=== PATIENT | male | born 1970 | race Caucasian/White ===

== ENCOUNTER 2018-05-12 05:58 | Inpatient (IN) | payer MEDICAID ==
[~2018-05-12] VITALS: Ht 170.2 cm; Wt 59.0 kg
[2018-05-12 09:00] VITALS: BP 119/76
--- NOTE | 2018-05-12 09:00 | NUR ---
APPLICATION ADMINISTRATOR PATIENT CAME IN AT 0845AM, DIRECT ADMIT FROM SHELLMAN. PATIENT RECEIVED VIA AMBULANCE, CAME IN VIA GURNEY. PATIENT A/OX4, NO DISTRESS NOTED, BREATHING EVEN AND UNLABORED, CALM AND COOPERATIVE. PIV NOTED ON LEFT AC G20. KEPT COMFORTABLE AT THIS TIME, NEEDS ATTENDED, CALL LIGHT WITHIN REACH, WILL CONTINUE TO MONITOR.
[2018-05-12] MEDS ORDERED: GABA-534 PO (09:03)
[2018-05-12] MEDS ORDERED: BACL10TA PO (09:03)
[2018-05-12] MEDS ORDERED: ONDANSETRON HCL/PF 4 MG/2 ML VIAL IVP PRN (10:00)
[2018-05-12] MEDS ORDERED: GABAPENTIN 300 MG CAPSULE PO PRN (10:00)
[2018-05-12] MEDS ORDERED: BACLOFEN (10 MG) 10 MG TABLET PO PRN (10:00)
[2018-05-12] MEDS ORDERED: ACETAMINOPHEN 325 MG TABLET PO PRN (10:00)
[2018-05-12] MEDS ORDERED: MAG HYDROX/AL HYDROX/SIMETH 30 ML UDC PO PRN (10:00)
[2018-05-12] MEDS ORDERED: MAGNESIUM HYDROXIDE 30 ML UDC PO PRN (10:00)
[2018-05-12] MEDS ORDERED: Z GUARD REMEDY 2 OZ OINT TP PRN (10:00)
[2018-05-12 10:23] LABS: BASOPHILS % (AUTO) 0.4 % (0.0-2.0); EOSINOPHILS % (AUTO) 0.9 % (0.0-6.0); HEMATOCRIT 34 % (39-51); HEMOGLOBIN 11.4 g/dL (13.5-17.5); LYMPHOCYTES # (AUTO) 1.5 /CMM (0.8-4.8); LYMPHOCYTES % (AUTO) 16.9 % (20.0-44.0); MEAN CORPUSCULAR HGB CONC 34 g/dl (31.0-36.0); MEAN CORPUSCULAR VOLUME 97 fL (80-96); MONOCYTES # (AUTO) 0.6 /CMM (0.1-1.30); MONOCYTES % (AUTO) 7.5 % (2.0-12.0); NEUTROPHILS # (AUTO) 6.4 /CMM (1.8-8.9); NEUTROPHILS % (AUTO) 74.3 % (43.0-81.0); PLATELET COUNT (AUTO) 204 /CMM (150-450); RED BLOOD CELL COUNT(AUTO) 3.48 MIL/uL (4.5-6.0); WHITE BLOOD COUNT (AUTO) 8.6 K/uL (4.3-11.0)
--- NOTE | 2018-05-12 10:30 | NUR ---
RN NOTES SKIN ASSESSMENT COMPLETED, SKIN DRY AND INTACT, BELONGINGS RECONCILED. PATIENT IN BED, RESTING. NEEDS ATTENDED AND MET.
[2018-05-12 10:33] LABS: CALCIUM, SERUM 8.4 mg/dL (8.5-10.1); CARBON DIOXIDE 26 mmol/L (21-32); CHLORIDE 111 mmol/L (98-107); CREATININE 1.1 mg/dL (0.6-1.3); GLUCOSE 88 mg/dL (74-106); POTASSIUM 4.5 mmol/L (3.5-5.1); SODIUM SERUM 145 mmol/L (136-145); UREA NITROGEN, BLOOD 18 mg/dL (7-18)
[2018-05-12 10:39] LABS: ALANINE AMINOTRANSFERASE 51 U/L (12-78); ALBUMIN 3.5 g/dL (3.4-5.0); ALKALINE PHOSPHATASE 61 U/L (46-116); ASPARTATE AMINOTRANSFERASE 45 U/L (15-37); BILIRUBIN,TOTAL 0.3 mg/dL (0.2-1.0); TOTAL PROTEIN, SERUM 5.8 g/dL (6.4-8.2)
[2018-05-12] MEDS: IV NS 0.9% 1,000 ML IV PRN ×2 (11:26→20:13)
[2018-05-12 12:02] LABS: CREATINE KINASE, TOTAL 876 U/L (39-308)
--- NOTE | 2018-05-12 14:40 | NUR ---
RN NOTES PATIENT RESTLESS IN BED, ANXIOUS, AND SWEATING. PATIENT C/O MUSCLE SPASMS ON LEFT LEG. DR. DE LA CRUZ MADE AWARE. DR. DE LA CRUZ MADE ROUNDS SEEN AND EXAMINED PATIENT, ORDERED FOR NEURO CONSULT AND ATIVAN PRN. PATIENT AWARE.
[2018-05-12] MEDS: LORAZEPAM 1 MG TABLET PO PRN (14:43)
[2018-05-12 16:00] VITALS: BP 123/70
[2018-05-12] MEDS: HYDROCODONE/APAP 5/325MG 1 EACH TABLET PO PRN (17:45)
--- NOTE | 2018-05-12 18:24 | NUR ---
RN NOTES PATIENT SEEN AND EXAMINED BY DR. CLAROS, RECEIVED NEW ORDERS. ORDERS NOTED AND CARRIED OUT. PATIENT IN NAD, FIDGETY AT THIS TIME, BREATHING EVEN AND UNLABORED, NO SOB NOTED, IVF INFUSING AND TOLERATING WELL, NEEDS ATTENDED AND MET, CALL LIGHT WITHIN REACH, WILL ENDORSE TO RESIDENTIAL APPLIANCE REPAIR TECHNICIAN FOR DEBORA.
--- NOTE | 2018-05-12 19:30 | NUR ---
RECEIVED PATIENT IN BED AWAKE, AO X 3, ABLE TO MAKE NEEDS KNOWN. NO ACUTE DISTRESS NOTED. MONITORED FOR PAIN. IV SITE PATENT, INTACT; IVF INFUSING ORDERED. SAFETY REMINDERS GIVEN. ON LOW BED WITH BILATERAL UPPER SIDE RAILS UP. CALL MARTINEZ WITHIN EASY REACH. WILL CONTINUE TO MONITOR.
[2018-05-12 19:49] VITALS: BP 130/73
[2018-05-12 20:00] VITALS: BP 130/73
[2018-05-12] MEDS: BACLOFEN (10 MG) 10 MG TABLET PO SCH (20:12)
[2018-05-12] MEDS: GABAPENTIN 400 MG CAPSULE PO SCH (20:12)
[2018-05-12 20:47] LABS: THYROID STIMULATING HORMONE 1.626 uIU/mL (0.358-3.74)
[2018-05-12 21:11] LABS: CREATINE KINASE, TOTAL 1765 U/L (39-308)
[2018-05-12] MEDS: ZOLPIDEM TARTRATE 5 MG TABLET PO PRN (22:20)
[2018-05-13] MEDS: HYDROCODONE/APAP 5/325MG 1 EACH TABLET PO PRN ×4 (03:07→23:53)
[2018-05-13] MEDS: BACLOFEN (10 MG) 10 MG TABLET PO SCH ×4 (05:03→23:57)
[2018-05-13] MEDS: GABAPENTIN 400 MG CAPSULE PO SCH ×2 (05:03→12:35)
[2018-05-13] MEDS: IV NS 0.9% 1,000 ML IV PRN ×3 (05:04→23:47)
[2018-05-13 06:30] LABS: BASOPHILS % (AUTO) 0.5 % (0.0-2.0); EOSINOPHILS % (AUTO) 2.1 % (0.0-6.0); HEMATOCRIT 41 % (39-51); HEMOGLOBIN 13.8 g/dL (13.5-17.5); LYMPHOCYTES # (AUTO) 1.8 /CMM (0.8-4.8); LYMPHOCYTES % (AUTO) 19.3 % (20.0-44.0); MEAN CORPUSCULAR HGB CONC 34 g/dl (31.0-36.0); MEAN CORPUSCULAR VOLUME 98 fL (80-96); MONOCYTES # (AUTO) 0.7 /CMM (0.1-1.30); MONOCYTES % (AUTO) 7.4 % (2.0-12.0); NEUTROPHILS # (AUTO) 6.8 /CMM (1.8-8.9); NEUTROPHILS % (AUTO) 70.7 % (43.0-81.0); PLATELET COUNT (AUTO) 264 /CMM (150-450); WHITE BLOOD COUNT (AUTO) 9.6 K/uL (4.3-11.0)
--- NOTE | 2018-05-13 06:30 | NUR ---
PATIENT AWAKE; RESPIRATIONS EVEN. MONITORED FOR PAIN. STRETCHING EXERCISES DONE ON LEFT LEG. DUE MEDS GIVEN WITH NO ASE NOTED. NEEDS ATTENDED. SAFETY PRECAUTIONS AND COMFORT MEASURES IN PLACE. WILL GIVE REPORT TO DAY SHIFT FOR CONTINUITY OF CARE.
[2018-05-13 06:37] LABS: ALANINE AMINOTRANSFERASE 74 U/L (12-78); ALBUMIN 4.2 g/dL (3.4-5.0); ALKALINE PHOSPHATASE 69 U/L (46-116); ASPARTATE AMINOTRANSFERASE 78 U/L (15-37); BILIRUBIN,TOTAL 0.7 mg/dL (0.2-1.0); CALCIUM, SERUM 8.8 mg/dL (8.5-10.1); CARBON DIOXIDE 23 mmol/L (21-32); CHLORIDE 107 mmol/L (98-107); CREATININE 1.1 mg/dL (0.6-1.3); GLUCOSE 83 mg/dL (74-106); MAGNESIUM 1.6 mg/dL (1.8-2.4); PHOSPHORUS 2.9 mg/dL (2.5-4.9); POTASSIUM 3.6 mmol/L (3.5-5.1); SODIUM SERUM 144 mmol/L (136-145); TOTAL PROTEIN, SERUM 7.2 g/dL (6.4-8.2); UREA NITROGEN, BLOOD 14 mg/dL (7-18)
[2018-05-13 06:44] LABS: CHOLESTEROL 159 mg/dL (<200); HDL CHOLESTEROL 71 mg/dL (40-60); LDL 79 mg/dL (0-99); THYROID STIMULATING HORMONE 3.033 uIU/mL (0.358-3.74); TRIGLYCERIDES 66 mg/dL (30-150)
[2018-05-13 07:05] LABS: CREATINE KINASE, TOTAL 1967 U/L (39-308)
--- NOTE | 2018-05-13 07:30 | NUR ---
MSRN. PT RECEIVED A&0X4, AWAKE AND RESTING IN BED. PT TOLERATING ROOM AIR WITHOUT DISTRESS AND DENIES PAIN AT THIS TIME. PT WITH IVC AT LFA G#20 INTACT AND OPERATIONAL WITH IVF PER RX. PT WITH NOTABLE SPASMS TO LEFT LEG. PT WITH BSC AND STATES WILL CALL PRIOR TO AMBULATING FOR SAFETY. PT BED IN LOWEST LOCKED POSITION WITH HANDRIALSX2 AND CALL MARTINEZ WITHIN REACH. PT BRIEFED ON TODAY'S POC AND IS WITHOUT COMPLAINT AT THIS TIME.
[2018-05-13 08:00] VITALS: BP 106/67
[2018-05-13] MEDS: LORAZEPAM 1 MG TABLET PO PRN (10:32)
[2018-05-13] MEDS: Magnesium 1GM/D5W 100ML PREMIX 100 ML IV SCH ×2 (10:32→11:54)
--- NOTE | 2018-05-13 15:00 | NUR ---
RADIOLOGY CALLED FOR UPDATE ON WHEN XRAY CAN BE COMPLETED. PT INFORMED.
[2018-05-13 16:00] VITALS: BP 133/84
[2018-05-13] MEDS: GABAPENTIN 300 MG CAPSULE PO SCH (17:08)
--- NOTE | 2018-05-13 18:08 | NUR ---
MSRN. PT REMAINS A&0X4 AND TOLERATING ROOM AIR WITHOUT DISTRESS, PT REPORTS INTERMITTENT PAIN/SPASM. PT WITH IVC AT LFA G#20 INTACT AND OPERATIONAL WITH IVF PER RX. PT BED IN LOWEST LOCKED POSITION WITH HANDRIALSX2, CALL MARTINEZ, URINAL AND BELONGINGS WITHIN REACH. ALL DAY NURSE DUTIES ATTENDED TO AND PT IS WITHOUT CONCERN OR COMPLAINT AT THIS TIME. WILL ENDORSE TO NIGHT NURSE AT BEDSIDE FOR DEBORA.
[2018-05-13 20:37] VITALS: BP 139/87
--- NOTE | 2018-05-13 21:15 | NUR ---
MSRN FULLY AWAKE, STATED WILL CALL WHEN HE IS READY FOR HIS NIGHT MEDICATIONS. APPEARS COMFORTABLE AT THIS TIME.
--- NOTE | 2018-05-13 23:50 | NUR ---
MSRN AWAKENED, WITH PAIN ON LOWER BACK AND LEFT LEG, NORCO 1 TAB GIVEN. BACLOFEN GIVEN LATE REQUESTED. PRESENT IVF INFUSING WELL.
[2018-05-14] MEDS: BACLOFEN (10 MG) 10 MG TABLET PO SCH ×3 (05:00→21:05)
--- NOTE | 2018-05-14 05:32 | NUR ---
MSRN REMAINS UNCHANGED, CLOSELY WATCHED.
--- NOTE | 2018-05-14 07:00 | NUR ---
MSRN PATIENT STABLE FOR NOW. ENDORSED TO INCOMING RN
--- NOTE | 2018-05-14 07:40 | NUR ---
MS RN OPENING NOTES RECEIVED PATIENT IN STABLE CONDITION. IN NO APPARENT DISTRESS. BEDSIDE RAILS ARE UPX2. BED IS LOCKED AND LOWERED. CALL LIGHT IS WITHIN REACH. IV LINE IS INTACT AND PATENT. WILL CONTINUE TO MONITOR PATIENT.
[2018-05-14 08:00] VITALS: BP 156/95
[2018-05-14] MEDS: HYDROCODONE/APAP 5/325MG 1 EACH TABLET PO PRN ×2 (08:05→21:13)
[2018-05-14] MEDS: GABAPENTIN 300 MG CAPSULE PO SCH ×3 (08:06→16:40)
[2018-05-14] MEDS ORDERED: CYCLOBENZAPRINE 10 MG TABLET PO PRN (08:30)
[2018-05-14] MEDS: CYCLOBENZAPRINE 10 MG TABLET PO SCH ×2 (08:55→16:40)
[2018-05-14] MEDS: IV NS 0.9% 1,000 ML IV PRN ×2 (08:56→16:45)
[2018-05-14 16:00] VITALS: BP 131/85
--- NOTE | 2018-05-14 18:30 | NUR ---
MS RN CLOSING NOTES PATIENT IS IN STABLE CONDITION. IN NO APPARENT DISTRESS. BEDSIDE RAILS ARE UPX2. BED IS LOCKED AND LOWERED. CALL LIGHT IS WITHIN REACH. IV LINE IS INTACT AND PATENT. ALL NEEDS WERE MET. WILL ENDORSE CARE TO MONITOR AND STORAGE BIN TENDER NURSE FOR DEBORA.
[2018-05-14 20:00] VITALS: BP 120/79
--- NOTE | 2018-05-14 20:00 | NUR ---
MS/RN NOTES: RECEIVED PT. IN BED W/ HOB ELEVATED. WATCHING TV. A/O X 4. DENIES ANY C/O CHEST PAIN OR SOB AT PRESENT. IVF GOING VIA LFA PATENT AND INTACT W/ NO S/S OF INFILTRATION/INFECTION NOTED. CALL LIGHT W/ REACH. CONTINENT OF B/B. BED LOCKED AND IN LOW POSITION. WILL CONTINUE TO MONITOR.
[2018-05-14 20:45] VITALS: BP 120/79
[2018-05-14] MEDS: ZOLPIDEM TARTRATE 5 MG TABLET PO PRN (23:28)
[2018-05-15] MEDS: IV NS 0.9% 1,000 ML IV PRN ×2 (03:47→13:08)
[2018-05-15] MEDS ORDERED: BACLOFEN (10 MG) 10 MG TABLET ONE (05:32)
[2018-05-15] MEDS: BACLOFEN (10 MG) 10 MG TABLET PO SCH ×3 (05:41→21:09)
[2018-05-15 07:23] LABS: CALCIUM, SERUM 8.7 mg/dL (8.5-10.1); CARBON DIOXIDE 27 mmol/L (21-32); CHLORIDE 110 mmol/L (98-107); GLUCOSE 85 mg/dL (74-106); MAGNESIUM 1.9 mg/dL (1.8-2.4); POTASSIUM 3.8 mmol/L (3.5-5.1); SODIUM SERUM 146 mmol/L (136-145); UREA NITROGEN, BLOOD 9 mg/dL (7-18)
--- NOTE | 2018-05-15 07:30 | NUR ---
RN NOTES A/OX4, NO DISTRESS NOTED, NAD, KEPT COMFORTABLE, NEEDS ATTENDED, CALL LIGHT WITHIN REACH, WILL CONTINUE TO MONITOR.
[2018-05-15 07:56] LABS: CREATINE KINASE, TOTAL 1226 U/L (39-308)
[2018-05-15 08:00] VITALS: BP 144/80
[2018-05-15] MEDS: HYDROCODONE/APAP 5/325MG 1 EACH TABLET PO PRN (08:26)
[2018-05-15] MEDS: CYCLOBENZAPRINE 10 MG TABLET PO SCH ×2 (09:31→16:29)
[2018-05-15] MEDS: GABAPENTIN 300 MG CAPSULE PO SCH ×3 (09:31→16:29)
--- NOTE | 2018-05-15 11:06 | NUR ---
RN NOTES PATIENT SEEN BY DR. CASTANEDA, ENCOURAGED MORE AMBULATION, PATIENT GIVEN A WALKER.
[2018-05-15 16:00] VITALS: BP 136/84
--- NOTE | 2018-05-15 18:38 | NUR ---
RN NOTES PATIENT A/OX4, NAD, BREATHING EVEN AND UNLABORED, NO SOB NOTED, DENIES PAIN AT THIS TIME. CALL LIGHT WITHIN REACH, WILL ENDORSE TO CENTRAL LAB TECHNICIAN FOR DEBORA.
[2018-05-15 20:00] VITALS: BP 123/72
[2018-05-16] MEDS: IV NS 0.9% 1,000 ML IV PRN ×2 (00:18→09:20)
[2018-05-16] MEDS: HYDROCODONE/APAP 5/325MG 1 EACH TABLET PO PRN ×2 (00:25→07:01)
[2018-05-16] MEDS: ZOLPIDEM TARTRATE 5 MG TABLET PO PRN (00:30)
[2018-05-16] MEDS ORDERED: BACLOFEN (10 MG) 10 MG TABLET ONE (04:50)
[2018-05-16] MEDS: BACLOFEN (10 MG) 10 MG TABLET PO SCH ×2 (04:55→12:18)
--- NOTE | 2018-05-16 06:50 | NUR ---
MS RN NOTES AWAKE & RESPONSIVE. NOT IN ANY DISTRESS. NO SOB NOTED. DENIES ANY PAIN OR DISCOMFORT AT THIS TIME. WITH IVF INFUSING WELL. MONITORED ACCORDINGLY. CALL LIGHT WITHIN REACH. BED IN LOWEST POSITION. SR UP X 2 FOR SAFETY. WILL ENDORSE TO NEXT SHIFT.
[2018-05-16 07:18] LABS: CREATINE KINASE, TOTAL 833 U/L (39-308)
--- NOTE | 2018-05-16 07:20 | NUR ---
MS/RN OPENING NOTE THE PATIENT IS RECEIVED IN BED. AWAKE. ALERT AND ORIENTED X4. DENIES PAIN AT THIS TIME. IN ROOM AIR AND DENIES SOB. RESPIRATION REGULAR AND UNLABORED. DENIES PAIN. THE PATIENT IN STABLE CONDITION. LFA G 22 PATENT AND NS INFUSING AT 150ML/HR. NO S/S INFILTRATION NOTED. GOOD AND GENTLE SKIN CARE RENDERED. KEPT CLEAN, DRY AND COMFORTABLE. ALL NEEDS ATTENDED AND ANTICIPATED. CALL LIGHT WITHIN REACH. WILL CONTINUE TO MONITOR.
[2018-05-16 08:00] VITALS: BP 145/92
[2018-05-16] MEDS: LORAZEPAM 1 MG TABLET PO PRN (08:13)
[2018-05-16] MEDS: CYCLOBENZAPRINE 10 MG TABLET PO SCH (08:13)
[2018-05-16] MEDS: GABAPENTIN 300 MG CAPSULE PO SCH ×2 (08:13→12:18)
[2018-05-16 09:00] LABS: CALCIUM, SERUM 8.9 mg/dL (8.5-10.1); CARBON DIOXIDE 26 mmol/L (21-32); CHLORIDE 108 mmol/L (98-107); GLUCOSE 89 mg/dL (74-106); MAGNESIUM 1.9 mg/dL (1.8-2.4); POTASSIUM 4.3 mmol/L (3.5-5.1); SODIUM SERUM 145 mmol/L (136-145); UREA NITROGEN, BLOOD 10 mg/dL (7-18)
--- NOTE | 2018-05-16 15:45 | NUR ---
MS/RN NOTE THE PATIENT AND SISTER ARE GIVEN THE DISCHARGE EDUCATION AND THEY VERBALIZED UNDERSTANDING. PATIENT DENIES SOB. RESPIRATION REGULAR AND UNLABORED. DENIES PAIN. THE PATIENT IN NO APPARENT DISTRESS. THE PATIENT LEAVING THE HOSPITAL IN STABLE CONDITION.
== END 2018-05-16 15:45 | disposition home or self-care (01) | DRG 351 ==
LOC: MEDSG2 08:30
PROVIDERS: ATTEND Internal Medicine
DX: M62.82 Rhabdomyolysis (principal); N17.9 Acute kidney failure, unspecified; D64.9 Anemia, unspecified; M62.838 Other muscle spasm; Z98.890 Other specified postprocedural states
CPT/HCPCS: 36415; 72110-TC; 80048-TC; 80053-TC; 80061-TC; 82550-TC; 82553-TC; 83735-TC; 84100-TC; 84443-TC; 85025-TC; 87081-TC; G0378; J3475; J7030